=== PATIENT | male | born 1980 | race Caucasian/White ===

== ENCOUNTER 2017-05-04 01:26 | Emergency (ER) | payer OTHER ==
[2017-05-04 01:34] VITALS: BP 119/87; PULSE 99; RESP 16; TEMP 97.3; O2SAT 91
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
[2017-05-04] MEDS ORDERED: IBUPROFEN 200 MG TAB PO ONE (02:47)
[2017-05-04] MEDS ORDERED: HYDROCOD/APAP 5/325 PREPACK#6 BTL TAKEHOME ONE (02:47)
== END 2017-05-04 02:59 | disposition home or self-care (01) ==
DX: S62.336A Displaced fracture of neck of fifth metacarpal bone, right hand, initial encounter for closed fracture (principal); W51.XXXA Accidental striking against or bumped into by another person, initial encounter; Y99.0 Civilian activity done for income or pay; Y93.89 Activity, other specified